=== PATIENT | male | born 1980 | race Caucasian/White ===

== ENCOUNTER 2016-10-15 15:24 | Emergency (ER) | payer SELFPAY ==
[2016-10-15 15:41] VITALS: RESP 17
[2016-10-15 15:42] LABS: Basophils # (A) 0.1 k/uL (0-0.2); Basophils % (A) 1 %; CH 31.6; CHCM 35.1; Eosinophils # (A) 0.3 k/uL (0-0.7); Eosinophils % (A) 3 %; HCT 40.3 % (39.0-53.0); HDW 2.83; HGB 13.8 gm/dL (13.0-17.5); Luc # (Auto) 0.32; Luc % (Auto) 3; Lymphocytes # (A) 3.6 k/uL (1.0-4.8); Lymphocytes % (A) 38 %; MCH 31.1 pg (25.0-35.0); MCHC 34.3 g/dL (31.0-37.0); MCV 90.8 fL (80.0-100.0); Mean Platelet Volume 7.3; Monocytes # (A) 0.5 k/uL (0-1.0); Monocytes % (A) 5 %; Neutrophils # (A) 4.5 k/uL (1.3-7.7); Neutrophils % (A) 49 %; RBC 4.44 m/uL (4.30-5.90); RDW 13.6 % (11.5-15.5); WBC 9.2 k/uL (3.8-10.6); WBC (Perox) 9.11
[2016-10-15 15:46] LABS: Glucose,Whole Blood 92 mg/dL (75-99)
[2016-10-15 15:50] LABS: Partial Thromboplastin Time 23.9 sec (22.0-30.0); Prothrombin Time 10.5 sec (9.0-12.0)
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
[2016-10-15 15:51] LABS: ALT 24 U/L (21-72); AST 23 U/L (17-59); Alcohol <10 mg/dL; Alkaline Phosphatase 54 U/L (38-126); Amylase 64 U/L (30-110); Anion Gap 12 mmol/L; Blood Urea Nitrogen 17 mg/dL (9-20); Calcium 9.4 mg/dL (8.4-10.2); Carbon Dioxide 24 mmol/L (22-30); Chloride 106 mmol/L (98-107); Glucose 85 mg/dL (74-99); Non-African American GFR(MDRD) >60 (>60 ml/min/1.73 sqM); Potassium 3.8 mmol/L (3.5-5.1); Sodium 142 mmol/L (137-145); Total Bilirubin 0.5 mg/dL (0.2-1.3); Total Protein 7.4 g/dL (6.3-8.2)
[2016-10-15] MEDS ORDERED: IBUPROFEN 800 MG TAB PO STA (15:54)
--- NOTE | 2016-10-15 16:01 | XR ---
EXAMINATION TYPE: XR chest 1V DATE OF EXAM: 10/15/2016 3:57 PM COMPARISON: NONE HISTORY: Pain TECHNIQUE: Single frontal view of the chest is obtained. FINDINGS: There is no focal air space opacity, pleural effusion, or pneumothorax seen. The cardiac silhouette size is within normal limits. The osseous structures are intact. IMPRESSION: No acute process.
[2016-10-15 16:03] LABS: Creatine Kinase 93 U/L (55-170)
--- NOTE | 2016-10-15 16:03 | XR ---
EXAMINATION TYPE: XR knee limited LT DATE OF EXAM: 10/15/2016 3:57 PM COMPARISON: 01 [id number],014 TECHNIQUE: 2 view submitted HISTORY: Pain FINDINGS: There is a prosthetic knee in near anatomic alignment. Osseous structures appear intact. Soft tissue calcification or ossification within the suprapatellar bursa noted. IMPRESSION: 1. Postoperative change. Appears in near-anatomic alignment
--- NOTE | 2016-10-15 16:05 | XR ---
EXAMINATION TYPE: XR pelvis AP view DATE OF EXAM: 10/15/2016 3:57 PM COMPARISON: NONE HISTORY: Pain The osseous structures are intact and the joint spaces are preserved. No acute fracture is seen. Vi sualized bowel gas pattern is nonspecific. IMPRESSION: 1. No acute fracture.
[2016-10-15 16:08] LABS: Appearance,Urine Clear (Clear); Bilirubin,Urine Negative (Negative); Glucose,Urine (UA) Negative (Negative); Ketones,Urine Negative (Negative); Leukocyte Esterase,Urine Negative (Negative); Nitrite,Urine Negative (Negative); Protein,Urine Negative (Negative); Specific Gravity,Urine 1.005 (1.001-1.035); UA Billing (MACRO vs. MICRO) CHEM; Urobilinogen,Urine <2.0 mg/dL (<2.0)
[2016-10-15 16:15] LABS: Creatine Kinase MB 1.7 ng/mL (0.0-2.4); Troponin I <0.012 ng/mL (0.000-0.034)
[2016-10-15] MEDS ORDERED: KETOROLAC 30 MG/ML 1 ML VIAL IVP STA (16:23)
[2016-10-15 16:40] VITALS: BP 112/73; PULSE 78; TEMP 98.7
== END 2016-10-15 16:34 | disposition home or self-care (01) ==
LOC: EC 15:24
DX: S83.92XA Sprain of unspecified site of left knee, initial encounter (principal); F17.200 Nicotine dependence, unspecified, uncomplicated; Z88.5 Allergy status to narcotic agent; Z98.890 Other specified postprocedural states; V13.4XXA Pedal cycle driver injured in collision with car, pick-up truck or van in traffic accident, initial encounter; Y92.410 Unspecified street and highway as the place of occurrence of the external cause
CPT/HCPCS: 36415; 86900; 86901; 80053; 82150; 82550; 82553; 83690; 84484; 85025; 85610; 85730; 86850; 81003; 80306; 80320; 71010; 72170; 73560; 99284; 96374; J1885; 93005

== ENCOUNTER 2016-10-30 19:51 | Emergency (ER) | payer OTHER ==
[2016-10-30] MEDS ORDERED: HYDROcodone/APAP 5-325MG 1 EACH TAB PO STA (20:16)
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
[2016-10-30] MEDS ORDERED: RIVAROXABAN 15 MG TAB PO STA (22:42)
[2016-10-30 23:15] VITALS: BP 148/81; PULSE 78; RESP 18; TEMP 98
== END 2016-10-30 23:00 | disposition home or self-care (01) ==
LOC: EC 19:51
DX: S83.92XA Sprain of unspecified site of left knee, initial encounter (principal); S86.812A Strain of other muscle(s) and tendon(s) at lower leg level, left leg, initial encounter; V09.9XXS Pedestrian injured in unspecified transport accident, sequela; I82.432 Acute embolism and thrombosis of left popliteal vein; Z86.718 Personal history of other venous thrombosis and embolism; F17.200 Nicotine dependence, unspecified, uncomplicated; Z88.5 Allergy status to narcotic agent
CPT/HCPCS: 99283

== ENCOUNTER 2016-10-31 22:41 | Emergency (ER) | payer OTHER ==
[2016-10-31 22:46] VITALS: BP 144/83; PULSE 90; RESP 18; TEMP 97.7
[2016-10-31] MEDS ORDERED: ENOXAPARIN 150 MG/ML SYRINGE SQ STA (23:18)
--- NOTE | 2016-10-31 23:18 | ED ---
Extremity Problem HPI - General Chief complaint: Extremity Problem,Nontraumatic Stated complaint: leg pain Time Seen by Provider: 10/31/16 22:49 Source: patient Mode of arrival: ambulatory Limitations: no limitations - History of Present Illness Initial comments: He had ultrasound of the lower extremity yesterday, unfortunately was diagnosed with a DVT though he has a history of DVTs in the past he was giving Dolophine Joshi here and prescription of Zofran, unfortunately his insurance didn't cover the supraorbital he only got 1 dose now he is not complaining about any chest pain there is no pleuritic chest pain there is no other symptoms at this point and he has been on Coumadin as well as Lovenox in the past. Patient has been on Coumadin before and Coumadin 2.5 mg has worked for him in the past on the basis - Related Data Home Medications Medication Instructions Recorded Confirmed Ibuprofen [Motrin] 800 - 1,000 mg PO Q6HR PRN 10/15/16 10/31/16 Acetaminophen Tab [Tylenol Tab] 2,000 mg PO Q6HR PRN 10/30/16 10/31/16 Previous Rx's Medication Instructions Recorded Hydrocodone/Acetaminophen [[place]wood 2 each PO Q6HR PRN #30 tab 10/30/16 5-325] Warfarin Sodium [Coumadin] 2.5 mg PO DAILY #30 tablet 10/31/16 Allergies Allergy/AdvReac Type Severity Reaction Status Date / Time propoxyphene napsylate Allergy AGGRESSION Verified 10/31/16 22:59 [From Tony-N 100] Review of Systems ROS Statement: Those systems with pertinent positive or pertinent negative responses have been documented in the HPI. ROS Other: All systems not noted in ROS Statement are negative. Past Medical History Past Medical History: No Reported History History of Any Multi-Drug Resistant Organisms: None Reported Past Surgical History: Orthopedic Surgery Additional Past Surgical History / Comment(s): Multiple left knee surgery Past Anesthesia/Blood Transfusion Reactions: No Reported Reaction Past Psychological History: No Psychological Hx Reported Smoking Status: Current every day smoker Past Alcohol Use History: Occasional Past Drug Use History: Marijuana General Exam - General Exam Comments Initial Comments: General: The patient is awake and alert, in no distress, and does not appear acutely ill. Skin: Skin is warm and dry and no rashes or lesions are noted. Eye: Pupils are equal, round and reactive to light, extra-ocular movements are intact; there is normal conjunctiva bilaterally. Ears, nose, mouth and throat: There are moist mucous membranes and no oral lesions. Neck: The neck is supple, there is no tenderness or JVD. Cardiovascular: There is a regular rate and rhythm. No murmur, rub or gallop is appreciated. Respiratory: To auscultation bilateral, no wheezing no rhonchi no distress respiratory torres noticed Gastrointestinal: Soft, non-distended, non-tender abdomen without masses or organomegaly noted. There is no rebound or guarding present. Bowel sounds are unremarkable. Back: There is no tenderness to palpation in the midline. There is no obvious deformity. Musculoskeletal: Normal ROM, no tenderness, There is no pedal edema. There is no calf tenderness or swelling. No cords were appreciated. Neurological: CN II-XII intact, Cranial nerves III through XII are intact. There are no obvious motor or sensory deficits. Coordination appears grossly intact. Speech is normal. Psychiatric: Cooperative, appropriate mood & affect, normal judgment. Limitations: no limitations Course Vital Signs 10/31/16 22:43 Temperature 97.7 F Pulse Rate 90 Respiratory 18 Rate Blood Pressure 144/83 O2 Sat by Pulse 99 Oximetry Plan to give him Coumadin 5 mg by mouth in the ER along with a Lovenox 1 mg/kg subcu dose and he'll be discharged with a Coumadin 2.5 mg by mouth daily he will see his family doctor and now 1-2 days to do PT and INR are mildly decreased with the plan Disposition Clinical Impression: DVT (deep venous thrombosis) Disposition: HOME SELF-CARE Condition: Good Instructions: Deep Venous Thrombosis (ED) Prescriptions: Warfarin Sodium [Coumadin] 2.5 mg PO DAILY #30 tablet
[2016-10-31] MEDS ORDERED: WARFARIN 5 MG TAB PO ONE (23:30)
== END 2016-10-31 23:41 | disposition home or self-care (01) ==
LOC: EC 22:41
DX: I82.409 Acute embolism and thrombosis of unspecified deep veins of unspecified lower extremity (principal); Z86.718 Personal history of other venous thrombosis and embolism; Z88.5 Allergy status to narcotic agent; F17.200 Nicotine dependence, unspecified, uncomplicated
CPT/HCPCS: 99283; J1650; 99284

== ENCOUNTER 2017-02-15 08:53 | Emergency (ER) | payer BC ==
[2017-02-15 09:14] VITALS: BP 125/82; PULSE 72; RESP 18; TEMP 97.3
--- NOTE | 2017-02-15 09:34 | XR ---
EXAMINATION TYPE: XR shoulder complete RT , 3 VIEWS DATE OF EXAM ORDERED: 02/15/2017 HISTORY: Pain. COMPARISON: None. FINDINGS: No fracture, dislocation or other acute osseous lesion is seen. IMPRESSION: NORMAL RIGHT SHOULDER.
--- NOTE | 2017-02-15 10:08 | ED ---
General Adult HPI - General Chief complaint: Extremity Injury, Upper Stated complaint: rt shoulder injury Time Seen by Provider: 02/15/17 09:15 Source: patient, RN notes reviewed Mode of arrival: ambulatory Limitations: no limitations - History of Present Illness Initial comments: Patient 36-year-old male who presents emergency room today with a chief complaint of injury to the right shoulder that occurred 2 days ago. He does admit that he was putting on a heavy backpack and he felt some cracking and popping in the right shoulder. He states that increased pain with any movements of flexion and extension at the right shoulder. He denies any other injuries or complaints. States been trying ibuprofen along with Tylenol with little relief the symptoms. - Related Data Home Medications Medication Instructions Recorded Confirmed Ibuprofen [Motrin] 800 - 1,000 mg PO Q6HR PRN 10/15/16 02/15/17 Acetaminophen Tab [Tylenol Tab] 2,000 mg PO Q6HR PRN 10/30/16 02/15/17 Naproxen Sodium [Aleve] 440 mg PO BID 02/15/17 02/15/17 Previous Rx's Medication Instructions Recorded Hydrocodone/Acetaminophen [Meredith 1 each PO Q6HR PRN #10 tab 02/15/17 5-325] Allergies Allergy/AdvReac Type Severity Reaction Status Date / Time propoxyphene napsylate AdvReac AGGRESSION Verified 02/15/17 09:16 [From [facility]-N 100] Review of Systems ROS Statement: Those systems with pertinent positive or pertinent negative responses have been documented in the HPI. ROS Other: All systems not noted in ROS Statement are negative. Past Medical History Past Medical History: No Reported History History of Any Multi-Drug Resistant Organisms: None Reported Past Surgical History: Cholecystectomy, Orthopedic Surgery Additional Past Surgical History / Comment(s): Multiple left knee surgery Past Anesthesia/Blood Transfusion Reactions: No Reported Reaction Past Psychological History: No Psychological Hx Reported Smoking Status: Current every day smoker Past Alcohol Use History: Occasional Past Drug Use History: Marijuana General Exam - General Exam Comments Initial Comments: General: The patient is awake and alert, in no distress, and does not appear acutely ill. Neck: The neck is supple, there is no tenderness or JVD. Cardiovascular: There is a regular rate and rhythm. No murmur, rub or gallop is appreciated. Respiratory: Lungs are clear to auscultation, respirations are non-labored, breath sounds are equal. No wheezes, stridor, rales, or rhonchi. Musculoskeletal: Normal vaginal right shoulder with no obvious deformity. He shows limited range of motion with flexion and extension at the right shoulder due to pain. Full range of motion of the right elbow and wrist. Sensations are intact with pulses equal bilaterally 2+. Strength in these areas is 5/5. Strength to the right shoulder unable be assessed due to pain. Patient has full range of motion of his neck with no tenderness and cervical spine. Neurological: A&O x 3. CN II-XII intact, There are no obvious motor or sensory deficits. Coordination appears grossly intact. Speech is normal. Skin: Skin is warm and dry and no rashes or lesions are noted. Psychiatric: Normal mood and affect. Limitations: no limitations Course Vital Signs 02/15/17 09:07 Temperature 97.3 F L Pulse Rate 72 Respiratory 18 Rate Blood Pressure 125/82 O2 Sat by Pulse 97 Oximetry Medical Decision Making - Medical Decision Making X-rays reviewed to the right shoulder are negative for any acute fracture dislocation. Results were discussed with the patient. Patient given a shoulder sling here in the emergency room for comfort. He is advised he take his arm out of the sling and use range of motion exercises. Was discussed about frozen shoulder. Patient is advised follow-up with orthopedics. He states he does not want to see anybody here locally. He is advised follow-up with his insurance for her other references and referrals. Patient requesting pain medication here the emergency room will be given a short prescription of Meredith. Advised to use ibuprofen and will be given a prescription for ibuprofen as well. Disposition Clinical Impression: Shoulder injury Disposition: HOME SELF-CARE Condition: Good Instructions: Rotator Cuff Injury (ED) Additional Instructions: Please follow-up with orthopedics as discussed. Please use shoulder sling when up and moving around. Please do range of motion exercises at home with the shoulder as discussed to prevent any frozen shoulder symptoms. Please use pain medication as prescribed. Please return to emergency room for any other concerns. Prescriptions: Hydrocodone/Acetaminophen [Meredith 5-325] 1 each PO Q6HR PRN #10 tab PRN Reason: Pain Referrals: Amrit Alvarado MD [Primary Care Provider] - 1-2 days Time of Disposition: 10:06
== END 2017-02-15 10:31 | disposition home or self-care (01) ==
LOC: EC 08:53
DX: S49.91XA Unspecified injury of right shoulder and upper arm, initial encounter (principal); F17.200 Nicotine dependence, unspecified, uncomplicated; Z79.1 Long term (current) use of non-steroidal anti-inflammatories (NSAID); Z88.5 Allergy status to narcotic agent; X58.XXXA Exposure to other specified factors, initial encounter; Y93.89 Activity, other specified
CPT/HCPCS: 99283

== ENCOUNTER 2017-12-18 09:29 | Emergency (ER) | payer BC ==
[2017-12-18] MEDS ORDERED: KETOROLAC 60 MG/2 ML VIAL IM STA (10:25)
--- NOTE | 2017-12-18 10:59 | XR ---
EXAMINATION TYPE: XR knee complete bilateral DATE OF EXAM: 12/18/2017 CLINICAL HISTORY: Acute onset bilateral knee pain with prior surgery bilaterally TECHNIQUE: 3 views of the bilateral knees were obtained. COMPARISON: None. FINDINGS: There is no acute fracture/dislocation evident in either knee. On the left there is a comp lete arthroplasty without malalignment or surrounding lucency. No [place] bone fracture is identified. Small suprapatellar joint effusion and prepatellar subcutaneous edema are noted. On the right there is mild medial compartment joint space narrowing and bicompartmental distal femoral condyle small mar ginal osteophytes. No evidence of joint effusion on the right. Lucency of the tibia and fibula on the right centrally from prior surgical intervention is noted. IMPRESSION: There is no acute fracture or dislocation in either knee. Left-sided prepatellar soft ti ssue swelling and small suprapatellar joint effusion are noted with bilateral postoperative changes. Mild bicompartmental right-sided arthropathy.
--- NOTE | 2017-12-18 11:59 | ED ---
General Adult HPI - General Chief complaint: Extremity Injury, Lower Stated complaint: Knee Pain Time Seen by Provider: 12/18/17 10:13 Source: patient, RN notes reviewed Mode of arrival: wheelchair Limitations: no limitations - History of Present Illness Initial comments: Patient 37-year-old male presents to the emergency room today with a chief complaint of increased pain to the right knee. He does admit that he felt a pop yesterday. States that he has had increased pain to the right knee worse with certain movements. Does admit that is been giving out at times. He also admits that he had a knee replacement several years ago on the left knee has noticed some swelling over the last several months on the side. He states he's not been able to continue orthopedic. He states no one will see him. Patient denies any other complaints or symptoms. - Related Data Home Medications Medication Instructions Recorded Confirmed Ibuprofen [Motrin] 800 - 1,000 mg PO Q6HR PRN 10/15/16 12/18/17 Ascorbic Acid [Vitamin C] 500 mg PO DAILY 12/18/17 12/18/17 Allergies Allergy/AdvReac Type Severity Reaction Status Date / Time propoxyphene napsylate AdvReac AGGRESSION Verified 12/18/17 10:49 [From [facility]-N 100] Review of Systems ROS Statement: Those systems with pertinent positive or pertinent negative responses have been documented in the HPI. ROS Other: All systems not noted in ROS Statement are negative. Past Medical History Past Medical History: No Reported History History of Any Multi-Drug Resistant Organisms: None Reported Past Surgical History: Cholecystectomy, Orthopedic Surgery Additional Past Surgical History / Comment(s): Multiple left knee surgery, multiple right knee surgeries Past Anesthesia/Blood Transfusion Reactions: No Reported Reaction Past Psychological History: No Psychological Hx Reported Smoking Status: Current every day smoker Past Alcohol Use History: Occasional Past Drug Use History: Marijuana General Exam - General Exam Comments Initial Comments: General: The patient is awake and alert, in no distress, and does not appear acutely ill. Neck: The neck is supple, there is no tenderness or JVD. Musculoskeletal: Patient does have some swelling to the left knee compared to the right. Patient shows good range of motion both left and right knee. He has tenderness anteriorly bilaterally. Sensations Are intact with pulses 2+. Neurological: A&O x 3. CN II-XII intact, There are no obvious motor or sensory deficits. Coordination appears grossly intact. Speech is normal. Skin: Skin is warm and dry and no rashes or lesions are noted. Psychiatric: Normal mood and affect. Limitations: no limitations Course Vital Signs 12/18/17 09:35 Temperature 98.3 F Pulse Rate 89 Respiratory 16 Rate Blood Pressure 128/82 O2 Sat by Pulse 98 Oximetry Medical Decision Making - Medical Decision Making Patient x-rays reviewed show no acute abnormalities. Results were discussed with patient. Patient will be discharged home to follow-up with orthopedics. Given knee immobilizer in the emergency room. He has crutches at home that he can use with weightbearing as tolerated. Disposition Clinical Impression: Knee pain Disposition: HOME SELF-CARE Condition: Good Instructions: Knee Pain (ED) Additional Instructions: Please illegible up and moving around with weightbearing as tolerated. Please follow-up with orthopedics for further evaluation as discussed. Please return to emergency room if the symptoms increase or worsen or for any other concerns. Is patient prescribed a controlled substance at d/c from ED?: No Referrals: None,Stated [Primary Care Provider] - 1-2 days Time of Disposition: 11:58
[2017-12-18 12:19] VITALS: BP 118/80; PULSE 69; RESP 18; TEMP 98.1
== END 2017-12-18 12:30 | disposition home or self-care (01) ==
LOC: EC 09:29
DX: M25.561 Pain in right knee (principal); M25.462 Effusion, left knee; F17.200 Nicotine dependence, unspecified, uncomplicated; Z98.890 Other specified postprocedural states; Z96.659 Presence of unspecified artificial knee joint; Z88.5 Allergy status to narcotic agent
CPT/HCPCS: 73562; 99283; 96372; L1830 ×2; J1885

== ENCOUNTER 2018-02-24 10:28 | Emergency (ER) | payer BC ==
[2018-02-24] MEDS ORDERED: HYDROcodone/APAP 5-325MG 1 EACH TAB PO STA (10:55)
[2018-02-24] MEDS ORDERED: KETOROLAC 30 MG/ML 1 ML VIAL IVP STA (10:55)
--- NOTE | 2018-02-24 11:06 | ED ---
Lower Extremity Injury HPI - General Source: patient, RN notes reviewed Mode of arrival: wheelchair Limitations: no limitations <Robert Perez - Last Filed: 02/24/18 13:30> <Merari Solo - Last Filed: 02/25/18 02:18> - General Chief Complaint: Extremity Injury, Lower Stated Complaint: lt knee pain Time Seen by Provider: 02/24/18 10:45 - History of Present Illness Initial Comments: 37-year-old male presents emergency Department chief complaint left knee pain. Patient states that he's had extensive issues with his left knee he states he's actually had a knee replacement by Dr. Colbert 2 years ago. Patient states that his surgeon will not see him anymore and he tried multiple other local surgeons will not see him secondary to having surgery by him. Patient states that he's had increase in pain last 24 hours he states especially this morning with swelling and states that he has severe pain to his left knee and swelling to his lower extremity. He has a history DVT. Patient denies any fever or chills but states that he cannot tolerate the pain cannot weight-bear at this time. He denies any trauma or known injury. (Robert Perez) - Related Data Home Medications Medication Instructions Recorded Confirmed Ibuprofen [Motrin] 800 mg PO Q6HR PRN 10/15/16 02/24/18 Acetaminophen Tab [Tylenol Tab] 1,000 mg PO Q6HR PRN 02/24/18 02/24/18 Previous Rx's Medication Instructions Recorded Ibuprofen [Motrin] 800 mg PO Q8HR #30 tab 02/24/18 Allergies Allergy/AdvReac Type Severity Reaction Status Date / Time propoxyphene napsylate AdvReac AGGRESSION Verified 02/24/18 11:06 [From [facility]-N 100] Review of Systems ROS Other: All systems not noted in ROS Statement are negative. <Robert Perez - Last Filed: 02/24/18 13:30> ROS Other: All systems not noted in ROS Statement are negative. <Merari Solo - Last Filed: 02/25/18 02:18> ROS Statement: Those systems with pertinent positive or pertinent negative responses have been documented in the HPI. Past Medical History Past Medical History: No Reported History History of Any Multi-Drug Resistant Organisms: None Reported Past Surgical History: Cholecystectomy, Joint Replacement, Orthopedic Surgery Additional Past Surgical History / Comment(s): Multiple left knee surgery and replacement, multiple right knee surgeries Past Anesthesia/Blood Transfusion Reactions: No Reported Reaction Past Psychological History: No Psychological Hx Reported Smoking Status: Current every day smoker Past Alcohol Use History: Occasional Past Drug Use History: Marijuana <Robert Perez - Last Filed: 02/24/18 13:30> General Exam Limitations: no limitations General appearance: alert, in no apparent distress Head exam: Present: atraumatic, normocephalic, normal inspection Respiratory exam: Present: normal lung sounds bilaterally. Absent: respiratory distress, wheezes, rales, rhonchi, stridor Cardiovascular Exam: Present: regular rate, normal rhythm, normal heart sounds. Absent: systolic murmur, diastolic murmur, rubs, gallop, clicks Extremities exam: Present: other (There is moderate swelling to the left leg with equal pedal pulses are excoriations in open wounds to the left calf there is old surgical scar noted to the left knee and pain with palpation and range of motion which is severe. There is mild warmth left knee but no erythema noted ) Skin exam: Present: warm, dry, intact, normal color. Absent: rash <Robert Perez - Last Filed: 02/24/18 13:30> Vital Signs 02/24/18 02/24/18 10:49 13:41 Temperature 98.5 F 96.7 F L Pulse Rate 89 75 Respiratory 18 20 Rate Blood Pressure 124/79 119/72 O2 Sat by Pulse 97 Oximetry Medical Decision Making - Lab Data Result diagrams: 02/24/18 11:15 02/24/18 11:15 <Robert Perez - Last Filed: 02/24/18 13:30> - Lab Data Result diagrams: 02/24/18 11:15 02/24/18 11:15 <Merari Solo - Last Filed: 02/25/18 02:18> - Medical Decision Making 37-year-old male presented for left knee pain. Patient has had a history of knee replacement. Patient had laboratory, all son an x-ray to a. Patient has evidence of chronic DVT no acute DVT. Patient does have joint effusion on x- ray. CRP is minimally elevated. Patient was evaluated by Dr. Solo and discuss having aspiration for possible infection patient declined at this time. Patient will be given anti-inflammatories, short course of pain meds and advised to follow-up with orthopedic doctor. (Robert Perez) I evaluated the patient independently of the PA, patient with a history of multiple surgeries to his bilateral knees, knee replacements of the left knee with subsequent chronic pain. Patient presents today with worsening pain in the left knee. He is taking Tylenol and Motrin at home with minimal improvement. Patient states that he has been unable to bear weight. Patient denies any systemic symptoms. Denies any redness to the knee. On physical exam the patient is well-appearing, he does have a left knee effusion, no erythema, effusion is not hot to the touch. I offered a joint aspiration for evaluation of possible septic joint versus gouty joint. Patient reports that he has had this procedure done in the past, however he doesn't feel it is necessary today. I advised the patient to attempt treatment with high-dose NSAIDs,, ice and elevation advised the patient that if he worsens over the next 48 hours or develops any redness or fever he should return to the ER immediately for reevaluation and possible joint aspiration. Patient expressed understanding and agreement with this plan. (Merari Solo) - Lab Data Lab Results 02/24/18 02/24/18 02/24/18 Range/Units 11:15 11:15 11:15 WBC 12.9 H (3.8-10.6) k/uL RBC 4.90 (4.30-5.90) m/uL Hgb 15.0 (13.0-17.5) gm/dL Hct 43.9 (39.0-53.0) % MCV 89.5 (80.0-100.0) fL MCH 30.6 (25.0-35.0) pg MCHC 34.2 (31.0-37.0) g/dL RDW 12.9 (11.5-15.5) % Plt Count 232 (150-450) k/uL Neutrophils % 76 % Lymphocytes % 14 % Monocytes % 7 % Eosinophils % 2 % Basophils % 0 % Neutrophils # 9.8 H (1.3-7.7) k/uL Lymphocytes # 1.8 (1.0-4.8) k/uL Monocytes # 0.9 (0-1.0) k/uL Eosinophils # 0.2 (0-0.7) k/uL Basophils # 0.1 (0-0.2) k/uL PT 9.9 (9.0-12.0) sec INR 1.0 (<1.2) APTT 22.6 (22.0-30.0) sec Sodium 141 (137-145) mmol/L Potassium 4.7 (3.5-5.1) mmol/L Chloride 108 H (98-107) mmol/L Carbon Dioxide 24 (22-30) mmol/L Anion Gap 9 mmol/L BUN 19 (9-20) mg/dL Creatinine 0.80 (0.66-1.25) mg/dL Est GFR (CKD-EPI)AfAm >90 (>60 ml/min/1.73 sqM) Est GFR (CKD-EPI)NonAf >90 (>60 ml/min/1.73 sqM) Glucose 95 (74-99) mg/dL Uric Acid 6.8 (3.5-8.5) mg/dL Calcium 9.5 (8.4-10.2) mg/dL Total Bilirubin 0.6 (0.2-1.3) mg/dL AST 25 (17-59) U/L ALT 33 (21-72) U/L Alkaline Phosphatase 55 (38-126) U/L C-Reactive Protein 10.8 H (<10.0) mg/L Total Protein 7.5 (6.3-8.2) g/dL Albumin 4.5 (3.5-5.0) g/dL Disposition Is patient prescribed a controlled substance at d/c from ED?: No Time of Disposition: 13:31 <Robert Perez M - Last Filed: 02/24/18 13:30> <Merari Solo P - Last Filed: 02/25/18 02:18> Clinical Impression: Effusion of left knee joint, Chronic deep vein thrombosis (DVT), Left knee pain Disposition: HOME SELF-CARE Condition: Stable Instructions: Knee Pain (ED) Additional Instructions: Please return to the Emergency Department if symptoms worsen or any other concerns. Prescriptions: Ibuprofen [Motrin] 800 mg PO Q8HR #30 tab Referrals: None,Stated [Primary Care Provider] - 1-2 days
[2018-02-24 11:39] LABS: Basophils # (A) 0.1 k/uL (0-0.2); Basophils % (A) 0 %; Eosinophils # (A) 0.2 k/uL (0-0.7); Eosinophils % (A) 2 %; HCT 43.9 % (39.0-53.0); Lymphocytes # (A) 1.8 k/uL (1.0-4.8); Lymphocytes % (A) 14 %; MCH 30.6 pg (25.0-35.0); MCHC 34.2 g/dL (31.0-37.0); MCV 89.5 fL (80.0-100.0); Monocytes # (A) 0.9 k/uL (0-1.0); Monocytes % (A) 7 %; Neutrophils # (A) 9.8 k/uL (1.3-7.7); Neutrophils % (A) 76 %; Platelet Count 232 k/uL (150-450); RDW 12.9 % (11.5-15.5); WBC 12.9 k/uL (3.8-10.6)
[2018-02-24 11:47] LABS: Partial Thromboplastin Time 22.6 sec (22.0-30.0); Prothrombin Time 9.9 sec (9.0-12.0)
[2018-02-24 11:55] LABS: ALT 33 U/L (21-72); AST 25 U/L (17-59); Albumin 4.5 g/dL (3.5-5.0); Alkaline Phosphatase 55 U/L (38-126); Anion Gap 9 mmol/L; Blood Urea Nitrogen 19 mg/dL (9-20); C Reactive Protein 10.8 mg/L (<10.0); Calcium 9.5 mg/dL (8.4-10.2); Carbon Dioxide 24 mmol/L (22-30); Chloride 108 mmol/L (98-107); Glucose 95 mg/dL (74-99); Potassium 4.7 mmol/L (3.5-5.1); Sodium 141 mmol/L (137-145); Total Bilirubin 0.6 mg/dL (0.2-1.3); Total Protein 7.5 g/dL (6.3-8.2); Uric Acid 6.8 mg/dL (3.5-8.5)
--- NOTE | 2018-02-24 12:06 | XR ---
EXAMINATION TYPE: XR knee complete LT DATE OF EXAM: 02/24/2018 COMPARISON: NONE HISTORY: 37-year-old male with a pain and swelling TECHNIQUE: 3 views FINDINGS: There is a left total knee arthroplasty. Old distal femoral and proximal tibial components of the pro sthesis appear well seated without periprosthetic fracture. Moderate knee joint effusion is present. Stable bone fragments, some in the suprapatellar pouch and some in the anterior tibial femoral joint. IMPRESSION: 1. No acute osseous abnormality seen. Unchanged small bone fragments in the suprapatellar pouch and a nteriorly in the knee joint. 2. Moderate knee joint effusion. Clinically correlate. 3. The orthopedic hardware appears well seated without periprosthetic fracture.
--- NOTE | 2018-02-24 13:02 | US ---
EXAMINATION TYPE: US venous doppler duplex LE LT DATE OF EXAM: 02/24/2018 12:26 PM COMPARISON: US 10/30/17 CLINICAL HISTORY: Pain. left knee pain x 1 day SIDE PERFORMED: Left TECHNIQUE: The lower extremity deep venous system is examined utilizing real time linear array sonog summer with graded compression, doppler sonography and color-flow sonography. VESSELS IMAGED: External Iliac Vein (EIV) Common Femoral Vein Deep Femoral Vein Greater Saphenous Vein * Femoral Vein Popliteal Vein Small Saphenous Vein * Proximal Calf Veins (* superficial vessels) Left Leg: ? chronic, non-occluding clot in mid proximal vein, laminar low-level internal echoes seen at the level of the anus confluence. This was seen previously, and appears unchanged. Good compressi on was seen in this area as well. Grayscale, color doppler, spectral doppler imaging performed of the deep veins of the lower extremiti es. There is normal flow, compressibility, vascular waveforms. IMPRESSION: Findings suggest chronic deep venous thrombosis within the popliteal vein, no interval change compared to prior exam
[2018-02-24] MEDS ORDERED: Acetaminophen-Codeine 300-30mg TAB PO STA (13:33)
[2018-02-24 13:42] VITALS: BP 119/72; PULSE 75; RESP 20; TEMP 96.7
[2018-02-24] MEDS ORDERED: ACET/COD 300 MG/30 MG STARTER PACK 6 TAB BTL PO STA (13:49)
== END 2018-02-24 14:01 | disposition home or self-care (01) ==
LOC: EC 10:28
DX: M25.462 Effusion, left knee (principal); I82.502 Chronic embolism and thrombosis of unspecified deep veins of left lower extremity; F17.200 Nicotine dependence, unspecified, uncomplicated; Z96.653 Presence of artificial knee joint, bilateral; Z98.890 Other specified postprocedural states; Z88.5 Allergy status to narcotic agent
CPT/HCPCS: 36415; 80053; 84550; 85025; 85610; 85730; 86140; 73562; 93971; 99284; 96374; L1830; J1885

== ENCOUNTER 2018-02-25 19:34 | Emergency (ER) | payer BC ==
[2018-02-25 19:43] VITALS: BP 109/72; PULSE 104; RESP 20; TEMP 99.8
[2018-02-25] MEDS ORDERED: KETOROLAC 30 MG/ML 1 ML VIAL IVP STA (20:52)
[2018-02-25] MEDS ORDERED: SODIUM CHLORIDE 0.9% 1,000 ML IV STA (20:52)
--- NOTE | 2018-02-25 20:57 | ED ---
General Adult HPI - General Chief complaint: Extremity Injury, Lower Stated complaint: left knee pain-revisit Time Seen by Provider: 02/25/18 20:28 Source: patient, RN notes reviewed Mode of arrival: wheelchair Limitations: no limitations - History of Present Illness Initial comments: This is a 37-year-old male who presents to the emergency department with chief complaint of left knee pain. Patient was seen here yesterday with the same issue. He states that he is had multiple surgeries and a knee replacement on the left knee performed by Dr. Colbert 2 years ago. He states that he has had an increase in pain since yesterday morning when he went to get up for work. He states he is having difficulty bearing weight and ambulating due to the pain. He was seen here yesterday and a full workup was performed. At that time patient did have mildly elevated white count with a minimally elevated CRP. Patient was offered joint aspiration for evaluation of infectious versus gouty joint. Patient refused and was discharged home. He was advised to return to the emergency department for any worsening in his symptoms. Patient states that he has had an increase in pain and swelling to the left knee today. He is unable to walk using the left leg. He was taking Tylenol threes at home and prescribed yesterday with minimal relief. Patient denies any recent falls, injuries or trauma. He denies any fevers or chills, however does state his temperature was elevated on arrival to the ER. - Related Data Home Medications Medication Instructions Recorded Confirmed Acetaminophen Tab [Tylenol Tab] 1,000 mg PO Q6HR PRN 02/24/18 02/25/18 Acetaminophen-Codeine 300-30mg 1 tab PO ONCE PRN 02/25/18 02/25/18 [Tylenol w/codeine #3] Previous Rx's Medication Instructions Recorded Ibuprofen [Motrin] 800 mg PO Q8HR #30 tab 02/24/18 Allergies Allergy/AdvReac Type Severity Reaction Status Date / Time propoxyphene napsylate AdvReac AGGRESSION Verified 02/25/18 20:12 [From Andert-N 100] Review of Systems ROS Statement: Those systems with pertinent positive or pertinent negative responses have been documented in the HPI. ROS Other: All systems not noted in ROS Statement are negative. Past Medical History Past Medical History: No Reported History History of Any Multi-Drug Resistant Organisms: None Reported Past Surgical History: Cholecystectomy, Joint Replacement, Orthopedic Surgery Additional Past Surgical History / Comment(s): Multiple left knee surgery and replacement, multiple right knee surgeries Past Anesthesia/Blood Transfusion Reactions: No Reported Reaction Past Psychological History: No Psychological Hx Reported Smoking Status: Current every day smoker Past Alcohol Use History: Occasional Past Drug Use History: Marijuana General Exam - General Exam Comments Initial Comments: General: Awake and alert, well-developed; in mild distress due to pain. HEENT: Head atraumatic, normocephalic. Pupils are equal, round and reactive to light. Extraocular movements intact. Oropharynx moist without erythema or exudate. Neck: Supple. Normal ROM. Cardiovascular: Tachycardic. Normal rhythm. No murmurs, rubs or gallops. Chest symmetrical. Respiratory: Lungs clear to auscultation bilaterally. No wheezes, rales or rhonchi. Normal respiratory effort with no use of accessory muscles. Musculoskeletal: Limited range of motion of the left knee due to pain. There is moderate swelling and pain with palpation and range of motion. There is warmth noted, however no erythema. Pedal pulses are 2+ equal and palpable bilaterally. Sensation is intact. Patient is using crutches. Skin: [place], warm and dry without rashes or lesions. Neurological: Alert and oriented x3. CN II-XII grossly intact. Speech is fluent and answers are appropriate. No focal neuro deficits. Psychiatric: Normal mood and affect. No overt signs of depression or anxiety noted. Limitations: no limitations Course Vital Signs 02/25/18 19:40 Temperature 99.8 F H Pulse Rate 104 H Respiratory 20 Rate Blood Pressure 109/72 O2 Sat by Pulse 98 Oximetry Medical Decision Making - Medical Decision Making This is a 37-year-old male who presents to the emergency department with chief complaint of left knee pain. Patient has an extensive history with multiple left knee surgeries and prosthesis. Patient has had the left knee prosthesis for 2 years. Surgery was performed by Dr. Colbert. Patient was seen yesterday in the emergency department with the same complaint. At that time, a full workup was performed. X-ray showed a moderate joint effusion. Venous Doppler duplex revealed a chronic DVT. CRP was slightly elevated. It was recommended that patient undergo a joint aspiration, however he refused. He was discharged home. Patient returns today with complaint of increased pain and swelling. Lab work was repeated. CRP was slightly elevated at 85.1, ESR 17. CBC and CMP were unremarkable. This case was discussed with attending physician, Dr. Vela who also evaluated the patient. He recommended discharge home with follow-up to orthopedics in the morning with Dr. Martino. Patient was in agreement with this plan. Vital stable in no distress. He will be discharged home. All questions answered. - Lab Data Result diagrams: 02/25/18 21:20 02/25/18 21:20 Lab Results 02/25/18 02/25/18 02/25/18 Range/Units 21:20 21:20 21:20 WBC 13.0 H (3.8-10.6) k/uL RBC 5.00 (4.30-5.90) m/uL Hgb 15.4 (13.0-17.5) gm/dL Hct 45.4 (39.0-53.0) % MCV 90.8 (80.0-100.0) fL MCH 30.8 (25.0-35.0) pg MCHC 33.9 (31.0-37.0) g/dL RDW 12.9 (11.5-15.5) % Plt Count 254 (150-450) k/uL Neutrophils % 70 % Lymphocytes % 19 % Monocytes % 8 % Eosinophils % 2 % Basophils % 0 % Neutrophils # 9.1 H (1.3-7.7) k/uL Lymphocytes # 2.5 (1.0-4.8) k/uL Monocytes # 1.0 (0-1.0) k/uL Eosinophils # 0.2 (0-0.7) k/uL Basophils # 0.1 (0-0.2) k/uL ESR Cancelled Sodium 137 (137-145) mmol/L Potassium 4.3 (3.5-5.1) mmol/L Chloride 105 (98-107) mmol/L Carbon Dioxide 21 L (22-30) mmol/L Anion Gap 11 mmol/L BUN 14 (9-20) mg/dL Creatinine 0.70 (0.66-1.25) mg/dL Est GFR (CKD-EPI)AfAm >90 (>60 ml/min/1.73 sqM) Est GFR (CKD-EPI)NonAf >90 (>60 ml/min/1.73 sqM) Glucose 93 (74-99) mg/dL Plasma Lactic Acid Sascha 1.3 (0.7-2.0) mmol/L Calcium 9.5 (8.4-10.2) mg/dL Total Bilirubin 1.1 (0.2-1.3) mg/dL AST 76 H (17-59) U/L ALT 113 H (21-72) U/L Alkaline Phosphatase 84 (38-126) U/L C-Reactive Protein 85.1 H (<10.0) mg/L Total Protein 7.9 (6.3-8.2) g/dL Albumin 4.5 (3.5-5.0) g/dL 02/25/18 Range/Units 22:22 WBC (3.8-10.6) k/uL RBC (4.30-5.90) m/uL Hgb (13.0-17.5) gm/dL Hct (39.0-53.0) % MCV (80.0-100.0) fL MCH (25.0-35.0) pg MCHC (31.0-37.0) g/dL RDW (11.5-15.5) % Plt Count (150-450) k/uL Neutrophils % % Lymphocytes % % Monocytes % % Eosinophils % % Basophils % % Neutrophils # (1.3-7.7) k/uL Lymphocytes # (1.0-4.8) k/uL Monocytes # (0-1.0) k/uL Eosinophils # (0-0.7) k/uL Basophils # (0-0.2) k/uL ESR 17 H Sodium (137-145) mmol/L Potassium (3.5-5.1) mmol/L Chloride (98-107) mmol/L Carbon Dioxide (22-30) mmol/L Anion Gap mmol/L BUN (9-20) mg/dL Creatinine (0.66-1.25) mg/dL Est GFR (CKD-EPI)AfAm (>60 ml/min/1.73 sqM) Est GFR (CKD-EPI)NonAf (>60 ml/min/1.73 sqM) Glucose (74-99) mg/dL Plasma Lactic Acid Sascha (0.7-2.0) mmol/L Calcium (8.4-10.2) mg/dL Total Bilirubin (0.2-1.3) mg/dL AST (17-59) U/L ALT (21-72) U/L Alkaline Phosphatase (38-126) U/L C-Reactive Protein (<10.0) mg/L Total Protein (6.3-8.2) g/dL Albumin (3.5-5.0) g/dL Disposition Clinical Impression: Effusion of left knee joint Disposition: HOME SELF-CARE Is patient prescribed a controlled substance at d/c from ED?: No Referrals: None,Stated [Primary Care Provider] - 1-2 days
[2018-02-25 21:46] LABS: Basophils # (A) 0.1 k/uL (0-0.2); Basophils % (A) 0 %; Eosinophils # (A) 0.2 k/uL (0-0.7); Eosinophils % (A) 2 %; HCT 45.4 % (39.0-53.0); HGB 15.4 gm/dL (13.0-17.5); Lymphocytes # (A) 2.5 k/uL (1.0-4.8); Lymphocytes % (A) 19 %; MCH 30.8 pg (25.0-35.0); MCHC 33.9 g/dL (31.0-37.0); MCV 90.8 fL (80.0-100.0); Mean Platelet Volume 7.3; Monocytes % (A) 8 %; Neutrophils # (A) 9.1 k/uL (1.3-7.7); Neutrophils % (A) 70 %; Platelet Count 254 k/uL (150-450); RDW 12.9 % (11.5-15.5)
[2018-02-25 21:59] LABS: ALT 113 U/L (21-72); AST 76 U/L (17-59); Albumin 4.5 g/dL (3.5-5.0); Alkaline Phosphatase 84 U/L (38-126); Anion Gap 11 mmol/L; Blood Urea Nitrogen 14 mg/dL (9-20); C Reactive Protein 85.1 mg/L (<10.0); Calcium 9.5 mg/dL (8.4-10.2); Carbon Dioxide 21 mmol/L (22-30); Chloride 105 mmol/L (98-107); Glucose 93 mg/dL (74-99); Potassium 4.3 mmol/L (3.5-5.1); Sodium 137 mmol/L (137-145); Total Bilirubin 1.1 mg/dL (0.2-1.3); Total Protein 7.9 g/dL (6.3-8.2)
== END 2018-02-25 23:25 | disposition home or self-care (01) ==
LOC: EC 19:34
DX: M25.562 Pain in left knee (principal); M25.462 Effusion, left knee; F17.200 Nicotine dependence, unspecified, uncomplicated; Z98.890 Other specified postprocedural states; Z96.652 Presence of left artificial knee joint; Z88.5 Allergy status to narcotic agent
CPT/HCPCS: 36415; 80053; 85652; 83605; 85025; 86140; 87040; 99283; 96374; 96361; J1885

== ENCOUNTER → 2018-02-26 | Outpatient (CLI) | payer BC ==
[2018-02-26 13:50] LABS: Basophils # (A) 0.1 k/uL (0-0.2); Basophils % (A) 1 %; Eosinophils # (A) 0.3 k/uL (0-0.7); Eosinophils % (A) 2 %; HCT 43.6 % (39.0-53.0); HGB 14.8 gm/dL (13.0-17.5); Lymphocytes # (A) 2.7 k/uL (1.0-4.8); Lymphocytes % (A) 21 %; MCH 30.6 pg (25.0-35.0); MCHC 33.8 g/dL (31.0-37.0); MCV 90.5 fL (80.0-100.0); Monocytes # (A) 0.8 k/uL (0-1.0); Monocytes % (A) 6 %; Neutrophils # (A) 9.1 k/uL (1.3-7.7); Neutrophils % (A) 68 %; Platelet Count 247 k/uL (150-450); RBC 4.82 m/uL (4.30-5.90); RDW 12.9 % (11.5-15.5); WBC 13.2 k/uL (3.8-10.6)
[2018-02-26 14:33] LABS: Erythrocyte Sedimentation Rate 25 mm/hr (0-15)
== END ==
LOC: LABWHC1 13:00
PROVIDERS: ATTEND Orthopaedic Surgery
DX: M25.512 Pain in left shoulder (principal); M25.462 Effusion, left knee
CPT/HCPCS: 36415; 85025; 85652; 86140; 87070; 87075; 87205

== ENCOUNTER → 2019-05-22 | Outpatient (CLI) | payer BC ==
--- NOTE | 2019-05-22 12:23 | CT ---
EXAMINATION TYPE: CT angio chest DATE OF EXAM: 05/22/2019 COMPARISON: CT chest October 19, 2010 HISTORY: Pulmonary Embolism and DVT per order. Abnormal outside CT. CT DLP: 366.50 mGycm. Automated Exposure Control for Dose Reduction was Utilized. CONTRAST: CTA scan of the thorax is performed without and with IV Contrast, patient injected with 100 ml mL of Isovue 370, pulmonary embolism protocol. MIP Images are created on CT scanner and reviewed. FINDINGS: LUNGS: Linear scarring left lower lobe laterally axial image 97 is redemonstrated near diaphragm. Callie gs are otherwise clear. No pleural effusion or pneumothorax seen bilaterally. Slightly elevated left hemidiaphragm. No suspicious nodules or masses. MEDIASTINUM: There is suboptimal bolus, there is partial occlusive thrombus branching into lingular a nd lower lobe bronchus seen best on axial image 63. There are no greater than 1 cm hilar or mediasti nal lymph nodes. No cardiomegaly or pericardial effusion is seen. OTHER: Cholecystectomy clips are seen. IMPRESSION: There is persistent partial occlusive thrombus near lingular and left lower lobe branchin g points with segmental extension. Patient has history of known pulmonary embolism at time of dictation. Outside study not available for correlation at time of dictation. A Yellow level critical message alert has been initiated for Mike Canseco MD via the [employer] on 05/22/2019 12:21 PM. This message alert has been sent to Mike Canseco MD via the preferences provided by the clinician for the receipt of Radiology Critical Findings. Message ID [id number].
--- NOTE | 2019-05-22 13:07 | US ---
EXAMINATION TYPE: US venous doppler duplex LE DATE OF EXAM: 05/22/2019 12:39 PM COMPARISON: CT angiotech chest dated 05/22/2019 left lower extremity ultrasound dated 02/24/2018 CLINICAL HISTORY: I26.99 Pulmonary Embolism, I82.5Z9 DVT. Patient has extensive history of PE's, bila teral leg blood clots more then once, currently on thinners, pain in left leg SIDE PERFORMED: Bilateral TECHNIQUE: The lower extremity deep venous system is examined utilizing real time linear array sonog summer with graded compression, doppler sonography and color-flow sonography. VESSELS IMAGED: External Iliac Vein (EIV) Common Femoral Vein Deep Femoral Vein Greater Saphenous Vein * Femoral Vein Popliteal Vein Small Saphenous Vein * Proximal Calf Veins (* superficial vessels) Right Leg: Extensive chronic process noted within right leg from popiteal vein extending up through CFV, internal echoes within thin vein, noncompressible veins with patchy flow at times, multiple ghassan ateral veins. Left Leg: Appearance of acute DVT seen from proximal calf veins extending to EIV, internal echoes wi thin distended appearing vein that was non compressible and very little to no flow detected. 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 Con tacted office at 12:55, emergency contact woman was going to fax Dr Canseco tech impression IMPRESSION: 1. Acute deep venous thrombosis within the left lower extremity of the external iliac vein through th e proximal calf veins. The patient is known to be on blood thinners with recent pulmonary embolus. Fi ndings were relayed to the ordering physician's office by the material control associate at 12:55 PM on 05/22/2019. 2. Common femoral vein to the popliteal vein displays internal echoes with thin incompletely compress ible veins indicating chronic thrombus with multiple collaterals seen.
== END | disposition home or self-care (01) ==
LOC: RADCTMAIN 11:21
PROVIDERS: ATTEND Internal Medicine Hematology & Oncology
DX: I26.99 Other pulmonary embolism without acute cor pulmonale (principal)
CPT/HCPCS: 93970; 71275; Q9967

== ENCOUNTER 2021-08-09 20:50 | Emergency (ER) | payer BC, OTHER ==
[2021-08-09 21:01] VITALS: BP 126/68; PULSE 94; RESP 20; TEMP 99
--- NOTE | 2021-08-09 21:54 | XR ---
EXAMINATION TYPE: XR knee complete LT DATE OF EXAM: 08/09/2021 CLINICAL HISTORY: pain TECHNIQUE: Three views of the left knee are obtained. COMPARISON: None. FINDINGS: There is no acute fracture/dislocation. Postop total knee replacement that appears to be intact. The tri-compartment joint spaces appear within normal limits. The overlying soft tissue appe ars unremarkable. IMPRESSION: There is no acute fracture or dislocation ICD 10 NO FRACTURE, INITIAL EVALUATION
--- NOTE | 2021-08-09 22:16 | ED ---
Lower Extremity Injury HPI - General Chief Complaint: Extremity Injury, Lower Stated Complaint: Fall, L Knee Injury Time Seen by Provider: 08/09/21 22:02 Source: patient, police Mode of arrival: wheelchair Limitations: no limitations - History of Present Illness Initial Comments: 41-year-old male patient presents to the emergency department today for landy luation of left knee pain. Patient states he is having anterior knee pain after tripping up the stairs hitting his knee on the step. States that he had pain especially with bending. Denies numbness or tingling to the leg. Denies any pain radiating down his leg. Has had previous knee replacement and multiple other surgeries was concerned about his prosthesis. He denies hitting his head or losing consciousness. Denies any other injuries. Has not taken any other medications. He is here with Senior Internet Sales Consultant due to incarceration. - Related Data Home Medications Medication Instructions Recorded Confirmed Acetaminophen Tab [Tylenol Tab] 1,000 mg PO Q6HR PRN 02/24/18 02/25/18 Acetaminophen-Codeine 300-30mg 1 tab PO ONCE PRN 02/25/18 02/25/18 [Tylenol w/codeine #3] Previous Rx's Medication Instructions Recorded Ibuprofen [Motrin] 800 mg PO Q8HR #30 tab 02/24/18 Allergies Allergy/AdvReac Type Severity Reaction Status Date / Time propoxyphene napsylate AdvReac AGGRESSION Verified 08/09/21 20:57 [From Andert-N 100] Review of Systems ROS Statement: Those systems with pertinent positive or pertinent negative responses have been documented in the HPI. ROS Other: All systems not noted in ROS Statement are negative. Past Medical History Past Medical History: GERD/Reflux Additional Past Medical History / Comment(s): DVT, DDD, ulcers History of Any Multi-Drug Resistant Organisms: None Reported Past Surgical History: Cholecystectomy, Joint Replacement, Orthopedic Surgery Additional Past Surgical History / Comment(s): Multiple left knee surgery and replacement, multiple right knee surgeries Past Anesthesia/Blood Transfusion Reactions: No Reported Reaction Past Psychological History: No Psychological Hx Reported Smoking Status: Never smoker Past Alcohol Use History: None Reported, Occasional Past Drug Use History: None Reported, Marijuana General Exam Limitations: no limitations General appearance: alert, in no apparent distress, other (This is a well- developed, well-nourished adult male in no acute distress.) Respiratory exam: Present: normal lung sounds bilaterally. Absent: respiratory distress, wheezes, rales, rhonchi, stridor Cardiovascular Exam: Present: regular rate, normal rhythm, normal heart sounds. Absent: systolic murmur, diastolic murmur, rubs, gallop, clicks Extremities exam: Present: full ROM, normal capillary refill, other (Skin the left knee is pink, warm, dry. No evidence for swelling or ecchymosis. Pedal and posttibial pulses 2+.). Absent: tenderness, pedal edema, joint swelling, calf tenderness Neurological exam: Present: alert, oriented X3, CN II-XII intact Psychiatric exam: Present: normal affect, normal mood Skin exam: Present: warm, dry, intact, normal color. Absent: rash Course Vital Signs 08/09/21 20:57 Temperature 99.0 F Pulse Rate 94 Respiratory 20 Rate Blood Pressure 126/68 O2 Sat by Pulse 98 Oximetry Medical Decision Making - Medical Decision Making 41-year-old male patient presented to the emergency department for evaluation of left knee pain after a fall. Physical examination was unremarkable. No signs of ecchymosis or soft tissue swelling. Neurovascular status is intact. X-rays negative. We'll discharge back to alf. He is instructed to follow-up with his surgeon as soon as possible. Return parameters were discussed in detail. He verbalizes understanding and agrees this plan. My attending is Dr. Avilez. - Radiology Data Radiology results: report reviewed, image reviewed 3 views of the left knee are obtained. Report was reviewed in its entirety. Impression by Dr. Ruiz shows no acute fracture or dislocation. Disposition Clinical Impression: Contusion of left knee Disposition: HOME SELF-CARE Condition: Good Instructions (If sedation given, give patient instructions): Contusion in Adults (ED) Additional Instructions: Rest, ice, elevate the knee. Take Tylenol Motrin for pain control. Follow-up with the primary care physician for recheck in 1-2 days. Return for any new, worsening, or concerning symptoms. Is patient prescribed a controlled substance at d/c from ED?: No Referrals: Kennedy Bateman MD [Primary Care Provider] - 1-2 days Time of Disposition: 22:16
== END 2021-08-09 22:27 | disposition home or self-care (01) ==
LOC: EC 20:50
DX: S80.02XA Contusion of left knee, initial encounter (principal); F12.90 Cannabis use, unspecified, uncomplicated; Z86.718 Personal history of other venous thrombosis and embolism; W10.8XXA Fall (on) (from) other stairs and steps, initial encounter
CPT/HCPCS: 99283